=== PATIENT | female | born 2000 | race Caucasian/White ===

== ENCOUNTER 2021-02-28 01:21 | Day surgery (SDC) | payer OTHER, SELFPAY ==
[2021-02-22 12:45] VITALS: BMI 20.1
[2021-02-28] VITALS (8 sets, daily range): BP systolic 113–136; BP diastolic 56–84; PULSE 90–108; RESP 12–21; TEMP 36.6; O2SAT 100
[2021-02-28] MEDS: LACTATED RINGERS 1,000 ML 30 ML IV CONT ×2 (07:05→09:02)
--- NOTE | 2021-02-28 07:34 | WPDANESEPPF ---
Anes - Initial Pre Proc Eval Procedure: Operation Date: 02/28/21 08:30 Proposed Procedures p Extract Four Impacted [place] Teeth - Wood Owusu DMD Date/Time: 02/28/21 07:34 Surgeon: Wood Owusu DMD Pre Op Diagnosis: impacted wisdom teeth #1,16,17,32 Patient Data Age: 20 Gender: F Height: 1.57 m Weight: 52.25 kg Last Vital Signs Temp 36.6 C 02/28/21 06:35 Pulse 107 H 02/28/21 06:35 Resp 20 02/28/21 06:35 BP 113/84 02/28/21 06:35 Pulse Ox 100 02/28/21 06:35 Allergies Allergy/AdvReac Type Severity Reaction Status Date / Time No Known Allergies Allergy Verified 02/28/21 06:50 Home Medications Medication Instructions Recorded Confirmed Type norgestimate-ethinyl estradiol 1 tablet PO DAILY 02/22/21 02/28/21 History [Estarylla] pyridoxine (vitamin B6) 50 mg PO DAILY 02/22/21 02/22/21 History rizatriptan 10 mg PO PRN PRN 02/22/21 02/28/21 History pseudoephedrine HCl [Sudafed 12 120 mg PO Q12H PRN 02/28/21 02/28/21 History Hour] Patient hx anesthesia problems: none Family hx anesthesia problems: none PMFSH Past Medical History Medical History (Updated 02/28/21 @ 07:34 by Sang Pierre MD) Chronic nausea Social History Social History Smoking status: Never smoker Alcohol intake: never Anes - Eval Final PreProcedure Day of Procedure 02/28/21 07:34 Patient weight: normal Heart: regular rate and rhythm Lungs: clear to auscultation Airway: Mallampati scale class II Neurological: alert and oriented Last oral intake: >/= 8 hours ASA classification: I Emergent: no Anesthetic plan: proceed Anesthesia type and monitoring: general ETT and standard monitoring Informed Consent: The patient's anesthetic plan and its attendant risks and benefits were discussed with the patient/family/POA. Questions were solicited and answers provided to the satisfaction of the patient/family/POA.
[2021-02-28] MEDS: SCOPOLAMINE 1.5 MG PATCH TRANSDERM (07:49)
--- NOTE | 2021-02-28 08:21 | WPDHPUPDATE1 ---
History and Physical Update Update Date/Time: 02/28/21 08:21 History and Physical has been reviewed, including an updated exam of the patient. There are NO changes in the patient's condition. Risks, benefits, and alternatives have been discussed and questions answered. Patient agrees to proceed with procedure.
--- NOTE | 2021-02-28 08:22 | PM.IMHP ---
H&P: HPI History of Present Illness Date/Time: 02/28/21 08:22 Chief Complaint: pain PMFSH Past Medical History Medical History (Updated 02/28/21 @ 08:22 by Wood Owusu DMD) Chronic nausea Social History Social History Smoking status: Never smoker Alcohol intake: never Meds Home Medications and Allergies Home Medications Medication Instructions Recorded Confirmed Type norgestimate-ethinyl estradiol 1 tablet PO DAILY 02/22/21 02/28/21 History [Estarylla] pyridoxine (vitamin B6) 50 mg PO DAILY 02/22/21 02/22/21 History rizatriptan 10 mg PO PRN PRN 02/22/21 02/28/21 History pseudoephedrine HCl [Sudafed 12 120 mg PO Q12H PRN 02/28/21 02/28/21 History Hour] Allergies Allergy/AdvReac Type Severity Reaction Status Date / Time No Known Allergies Allergy Verified 02/28/21 06:50 Vital Signs Vital Signs - 24 hr 02/28/21 06:35 Temperature 36.6 C Pulse Rate 107 H Respiratory Rate 20 Blood Pressure 113/84 Pulse Oximetry 100 Assessment and Plan Assessment and plan (1) Impacted teeth with abnormal position: Code(s): K01.1 - Impacted teeth Status: Acute Assessment and Plan: ipmacted 1,16,17,32. SR 1,16,17,18
[2021-02-28] MEDS: LIDOCAINE 2%-EPI (FOR DENTAL BLOCK) 1.7 ML CARTRIDGE 3.4 ML INFILTRATE (08:57)
--- NOTE | 2021-02-28 08:58 | P.OPB_ITS ---
Procedure Note - Brief Procedure Note - Brief Date of procedure: 02/28/21 Pre-op diagnosis: impacted wisdom teeth #1,16,17,32 Surgeon: Wood Owusu, ARTUROPreoperative diagnose impacted teeth #[id number] postop diagnosis same procedure surgical removal of teeth #[id number]. Complications none. Estimated blood loss 5cc. Anesthesia general anesthesia and 6cc of 2% lidocaine with 100,000 epinephrine. Patient was encountered in the operating room in the care of the anesthesia service to induced a general anesthetic. Patient was draped in the usual manner for an intraoral surgical procedure. Oral cavity was suctioned free of debris and throat pack was placed. Local anesthetic administered. A 15 blade was used to make a 3rd molar incision in the area of tooth 1. And a full-thickness flap was elevated to the buccal. The bone overlying tooth 1. Was removed using periosteal elevator and tooth was removed using elevator forceps technique without complication. Socket curetted free of debris and irrigated copious amount sterile saline. Attention was turned to the area of 16. Which was extracted in identical fashion. Attention was turned to the area 17. Her 3rd molar incision was made and full- thickness flaps elevated to the buccal. A buccal trough was created using the drill and the tooth was sectioned into mesial and distal Gama removed using a ring forcep technique without complication. Sockets socket was curetted free of debris and irrigated with copious amounts of sterile saline. Tissues closed using 4 0 chromic gut suture in interrupted fashion. Attention was turned to their number 32 which was extracted identical fashion. Oral cavity was suctioned free of debris and throat pack was removed. Care of the patient was turned to the anesthesia service to extubate the patient transferred to recovery in stable condition.
[2021-02-28] MEDS: fentaNYL CITRATE INJ (*CRX) 100 MCG/2 ML VIAL 25 MCG IV PUSH ×2 (10:17→10:40)
== END 2021-02-28 11:00 | disposition home or self-care (01) ==
PROVIDERS: Visit Provider Dentist
PROC: (CPT 41899; principal; 2021-02-28 08:30)
DX: K01.1 Impacted teeth (principal)
CPT/HCPCS: 41899 ×4; A9270; J0330; J1100; J1200; J2250; J2405; J2704; J3010; J7120